=== PATIENT | female | born 1985 | race African-American/Black ===

== ENCOUNTER 2022-11-23 01:51 | Emergency (ER) | payer OTHER ==
[~2022-11-23] VITALS: Ht 170.2 cm; Wt 95.3 kg
--- NOTE | 2022-11-23 02:55 | NUR ---
18GA RAC ESTABLISHED
[2022-11-23] MEDS ORDERED: MORPHINE SULFATE INJ 2 MG/ML DISP.SYRIN IV ONE (03:00)
[2022-11-23] MEDS ORDERED: ONDANSETRON HCL/PF 4 MG/2 ML VIAL IVP ONE (03:00)
--- NOTE | 2022-11-23 03:00 | NUR ---
BLOOD WORK COLLECTED AND SENT TO LAB
[2022-11-23] MEDS ORDERED: ONDANSETRON HCL/PF 4 MG/2 ML VIAL ONE (03:02)
[2022-11-23] MEDS ORDERED: MORPHINE SULFATE INJ 4 MG/ML DISP.SYRIN ONE (03:03)
--- NOTE | 2022-11-23 03:11 | NUR ---
joyce from home, c/o lower back pain s/p gave 3 days ago at [facility]. On room air, breathing evenly and unlabored. Kept comfortable, will continue to monitor accordingly.
[2022-11-23 03:16] LABS: BASOPHILS # (AUTO) 0.1 K/uL (0.0-0.2); BASOPHILS % (AUTO) 1.1 % (0.0-2.0); HEMATOCRIT 35 % (33-45); HEMOGLOBIN 11.2 g/dL (11.5-14.8); LYMPHOCYTES # (AUTO) 0.6 K/uL (0.8-4.8); MEAN CORPUSCULAR HGB CONC 32 g/dl (31.0-36.0); MEAN CORPUSCULAR VOLUME 81 fL (82-100); MONOCYTES # (AUTO) 0.3 K/uL (0.1-1.30); MONOCYTES % (AUTO) 2.1 % (2.0-12.0); NEUTROPHILS % (AUTO) 89.8 % (43.0-81.0); PLATELET COUNT (AUTO) 148 K/uL (150-450); RED BLOOD CELL COUNT(AUTO) 4.27 MIL/uL (4.0-5.2); WHITE BLOOD COUNT (AUTO) 12.2 K/uL (4.3-11.0)
--- NOTE | 2022-11-23 03:17 | NUR ---
URINE COLLECTED AND SENT TO LAB
--- NOTE | 2022-11-23 03:20 | NUR ---
PT TRANSPORTED TO CT VIA WHEELCHAIR W/ TECH
--- NOTE | 2022-11-23 03:30 | NUR ---
PT RETURNED FROM CT
[2022-11-23 03:33] LABS: ALANINE AMINOTRANSFERASE 16 U/L (12-78); ALBUMIN 2.5 g/dL (3.4-5.0); ALKALINE PHOSPHATASE 135 U/L (46-116); ASPARTATE AMINOTRANSFERASE 14 U/L (15-37); BILIRUBIN,DIRECT 0.1 mg/dL (0.0-0.2); BILIRUBIN,TOTAL 0.4 mg/dL (0.2-1.0); CALCIUM, SERUM 8.7 mg/dL (8.5-10.1); CARBON DIOXIDE 27 mmol/L (21-32); CHLORIDE 104 mmol/L (98-107); CREATININE 0.8 mg/dL (0.6-1.3); GLUCOSE 108 mg/dL (74-106); LIPASE 41 U/L (73-393); POTASSIUM 4.1 mmol/L (3.5-5.1); SODIUM SERUM 137 mmol/L (136-145); TOTAL PROTEIN, SERUM 6.1 g/dL (6.4-8.2); UREA NITROGEN, BLOOD 10 mg/dL (7-18)
[2022-11-23 03:44] LABS: BILIRUBIN,URINE NEGATIVE (NEGATIVE); COLOR,URINE YELLOW (YELLOW); LEUKOCYTE ESTERASE ,URINE 3+ (NEGATIVE); NITRITE, URINE NEGATIVE (NEGATIVE); PROTEIN,URINE 2+ mg/dl (NEGATIVE); UGLUCOSE NEGATIVE (NEGATIVE); UROBILINOGEN,URINE 0.2 EU/dL (0.2)
[2022-11-23 03:46] LABS: BACTERIA,URINE Few /HPF (None Seen); SQUAMOUS EPITHELIAL CELL,UR Few /HPF (None Seen); WBC,URINE TOO NUMEROUS TO COUN /HPF (0-3)
[2022-11-23] MEDS ORDERED: IV NS 0.9% 1,000 ML IV ONE (04:00)
[2022-11-23] MEDS ORDERED: CEFTRIAXONE 1GM BAG (ER ONLY) 50 ML IV ONE (04:19)
[2022-11-23] MEDS ORDERED: CEFTRIAXONE 1GM BAG (ER ONLY) 1 GM/50 ML PIGGYBACK IV ONE (04:30)
--- NOTE | 2022-11-23 04:31 | NUR ---
IVF 1L ADMINISTERED
[2022-11-23] MEDS ORDERED: CEFP200T14 PO (05:15)
--- NOTE | 2022-11-23 05:17 | NUR ---
Patient discharged to home in stable condition. Written and verbal after care instructions given. Patient verbalizes understanding of instruction. IV removed. Catheter intact and site benign. Pressure and 4x4 applied to site. No bleeding noted.
--- NOTE | 2022-11-23 05:18 | NUR ---
IV ROCEPHIN END TIME 528. PT TOLERATED WELL.
[2022-11-23 05:28] VITALS: BP 124/71
--- NOTE | 2022-11-23 05:29 | NUR ---
Dre singleton in ED - 12/02/22 at 0659 by KAMRON IV ROCCATALINO END TIME 0530. PT TOLERATED WELL.
== END 2022-11-23 05:29 | disposition home or self-care (01) ==
LOC: ER 01:53
DX: S30.0XXA Contusion of lower back and pelvis, initial encounter (principal); N12 Tubulo-interstitial nephritis, not specified as acute or chronic; Z79.899 Other long term (current) drug therapy; X58.XXXA Exposure to other specified factors, initial encounter; Y93.89 Activity, other specified; Y92.89 Other specified places as the place of occurrence of the external cause; Y99.8 Other external cause status
CPT/HCPCS: 99285; 74176; 96374; 96375; 85025; 80048; 87086; 83605; 83690; 80076; 81001; 36415; J2270; J2405; J7030; J0696